=== PATIENT | female | born 1990 | race Two or more races ===

== ENCOUNTER 2020-06-19 10:40 | Emergency (ER) | payer OTHER ==
[~2020-06-19] VITALS: Ht 167.6 cm; Wt 85.7 kg
[~2020-06-19 10:40] MED LIST: BRONCOTRON LIQ118 ML; PRENATAL1 TAB
[2020-06-19] MEDS ORDERED: PRENA1 TRUE CO1 EACH (10:53)
[2020-06-19] MEDS ORDERED: INTESTINEX680 M1 PO (17:03)
[2020-06-19] MEDS ORDERED: LOPERAMIDE2 M1 PO (17:03)
== END 2020-06-19 17:27 | disposition home or self-care (01) ==
LOC: ER 10:40
DX: O43.891 Other placental disorders, first trimester (principal); O26.891 Other specified pregnancy related conditions, first trimester; O36.80X0 Pregnancy with inconclusive fetal viability, not applicable or unspecified; O26.851 Spotting complicating pregnancy, first trimester; K52.89 Other specified noninfective gastroenteritis and colitis; E86.0 Dehydration; R10.32 Left lower quadrant pain; R10.2 Pelvic and perineal pain; Z3A.08 8 weeks gestation of pregnancy

== ENCOUNTER 2020-11-11 15:56 | Inpatient (IN) | payer OTHER ==
[~2020-11-11] VITALS: Ht 167.6 cm; Wt 94.3 kg
[~2020-11-11 15:56] MED LIST changes: +INTESTINEX680 M1 PO; +LOPERAMIDE2 M1 PO; +PRENA1 TRUE CO1 EACH
[2020-11-11] MEDS ORDERED: ADULT ASPIRIN R81 MG PO (19:17)
== END 2020-11-13 12:23 | disposition home or self-care (01) | DRG 833 ==
LOC: LDR 15:56 → OB/GYN 11-12 16:28
PROVIDERS: ADMIT Obstetrics & Gynecology; ATTEND Obstetrics & Gynecology
PROC: 4A1HXFZ Monitoring of Products of Conception, Cardiac Rhythm, External Approach (ICD-10-PCS; principal; 2020-11-11)
DX: O47.03 False labor before 37 completed weeks of gestation, third trimester (principal); Z3A.28 28 weeks gestation of pregnancy; Z20.822 Contact with and (suspected) exposure to COVID-19

== ENCOUNTER 2020-11-20 15:18 | Outpatient (CLI) | payer OTHER ==
[~2020-11-20 15:18] MED LIST changes: +ADULT ASPIRIN R81 MG PO
== END 2020-11-20 18:45 | disposition home or self-care (01) ==
LOC: NST 15:18
PROVIDERS: ATTEND Obstetrics & Gynecology
DX: Z34.83 Encounter for supervision of other normal pregnancy, third trimester (principal)

== ENCOUNTER 2020-12-07 02:47 | Inpatient (IN) | payer OTHER ==
[~2020-12-07] VITALS: Ht 167.6 cm; Wt 94.3 kg
[2020-12-07] MEDS ORDERED: NIFEDIPINE ER30 M1 (14:55)
== END 2020-12-08 09:15 | disposition home or self-care (01) | DRG 833 ==
LOC: OBS/DEL 02:47 → LDR 06:40
PROVIDERS: ADMIT Obstetrics & Gynecology Maternal & Fetal Medicine; ATTEND Obstetrics & Gynecology Maternal & Fetal Medicine
PROC: 4A1HXFZ Monitoring of Products of Conception, Cardiac Rhythm, External Approach (ICD-10-PCS; principal; 2020-12-07)
DX: O47.03 False labor before 37 completed weeks of gestation, third trimester (principal); Z3A.32 32 weeks gestation of pregnancy

== ENCOUNTER 2021-01-06 15:00 | Inpatient (IN) | payer OTHER ==
[~2021-01-06] VITALS: Ht 167.6 cm; Wt 99.8 kg
[~2021-01-06 15:00] MED LIST changes: +NIFEDIPINE ER30 M1
== END 2021-01-10 11:42 | disposition home or self-care (01) | DRG 798 ==
LOC: LDR 01-08 06:41 → SURG-SUITE 01-08 06:41 → SURH 01-28 15:00
PROVIDERS: ADMIT Obstetrics & Gynecology; ATTEND Obstetrics & Gynecology
PROC: 0UB74ZZ Excision of Bilateral Fallopian Tubes, Percutaneous Endoscopic Approach (ICD-10-PCS; 2021-01-08)
PROC: 3E033VJ Introduction of Other Hormone into Peripheral Vein, Percutaneous Approach (ICD-10-PCS; 2021-01-08)
PROC: 10E0XZZ Delivery of Products of Conception, External Approach (ICD-10-PCS; 2021-01-08)
PROC: 10E0XZZ Delivery of Products of Conception, External Approach (ICD-10-PCS; principal; 2021-01-08 13:00)
DX: O80 Encounter for full-term uncomplicated delivery (principal); Z37.0 Single live birth; Z3A.37 37 weeks gestation of pregnancy; Z20.822 Contact with and (suspected) exposure to COVID-19

== ENCOUNTER 2021-01-07 12:49 | Outpatient (CLI) | payer OTHER | END 2021-01-07 13:42 | disposition home or self-care (01) | LOC: NST 12:49 | PROVIDERS: ATTEND Obstetrics & Gynecology | DX: Z34.83 Encounter for supervision of other normal pregnancy, third trimester (principal) ==

== ENCOUNTER 2024-10-05 12:27 | Emergency (ER) | payer OTHER ==
[~2024-10-05] VITALS: Ht 167.6 cm; Wt 78.0 kg
[2024-10-05] MEDS ORDERED: FAMOTIDINE/PF 20 MG/2 ML VIAL IV ONE (14:30)
[2024-10-05] MEDS ORDERED: 0.9 % SODIUM CHLORIDE 1,000 ML IV ONE (14:30)
[2024-10-05] MEDS ORDERED: LACTOBACILLUS ACIDOPHILUS 1 CAP CAP PO ONE ×2 (14:30→15:09)
[2024-10-05] MEDS ORDERED: ONDANSETRON HCL 2 MG/ML VIAL IV ONE (14:30)
[2024-10-05] MEDS ORDERED: FAMOTIDINE/PF 20 MG/2 ML VIAL ONE (15:09)
[2024-10-05] MEDS ORDERED: ONDANSETRON HCL 2 MG/ML VIAL ONE (15:09)
[2024-10-05 15:48] LABS: HEMATOCRIT 43.7 % (36.0-45.00); HEMOGLOBIN 14.7 g/dL (12.0-15.00); MEAN CELL VOLUME 87.9 fL (80.00-100.00); MEAN CORPUSCULAR HEMOGLOBIN 29.6 pg (27.00-32.0); MEAN CORPUSCULAR HGB CONC 33.7 g/dl (32.0-36.0); PLATELET COUNT 356 K/uL (150-450); RED BLOOD COUNT 4.97 M/uL (4.00-6.00); RED CELL DISTRIBUTION WIDTH 12.6 % (11.5-14.5)
[2024-10-05 16:11] LABS: ALBUMIN 3.8 gm/dL (3.4-5.0); BILIRUBIN TOTAL 1.09 mg/dL (0.3-1.2); CALCIUM 8.9 mg/dL (8.5-10.1); CREATININE SERUM 0.87 mg/dL (0.55-1.02); GFR 74.09; GLOBULINA 4.2 G/DL (2.4-3.5); POTASSIUM 3.9 mEq/L (3.5-5.1)
[2024-10-05 17:55] LABS: URINE APPEARANCE Clear; URINE BILIRRUBIN Negative (NEGATIVE); URINE BLOOD Large; URINE COLOR Yellow; URINE GLUCOSE Negative (NEGATIVE); URINE LEUKOCYTE Trace; URINE NITRATE Negative; URINE PROTEIN Trace (NEGATIVE); URINE UROBILINOGEN 0.2 E.U./dl
[2024-10-05 17:59] LABS: URINE BACTERIA 877.4 uL (0.0-1933); URINE EPITHELIAL CELLS 34.9 uL (0.0-38.8); URINE RBC 94.8 uL (0.0-20.8); URINE WBC 18.8 uL (0.0-23.2)
[2024-10-05 18:09] LABS: URINE KETONE 40 (NEGATIVE)
[2024-10-05] MEDS ORDERED: PEPCID AC20 MG PO (18:50)
[2024-10-05] MEDS ORDERED: ONDANSETRON HCL4 MG PO (18:50)
[2024-10-05] MEDS ORDERED: INTESTINEX680 M1 PO (18:50)
== END 2024-10-05 19:09 ==
LOC: ER 12:30
PROVIDERS: General Practice
DX: K52.89 Other specified noninfective gastroenteritis and colitis (principal); R10.13 Epigastric pain; R11.10 Vomiting, unspecified